=== PATIENT | female | born 1960 | race African-American/Black ===

== ENCOUNTER → 2021-08-17 | Outpatient (CLI) | payer MEDICAID | END | disposition home or self-care (01) | LOC: LAB 11:06 | PROVIDERS: ATTEND Ophthalmology | DX: Z01.812 Encounter for preprocedural laboratory examination (principal); Z20.822 Contact with and (suspected) exposure to COVID-19 | CPT/HCPCS: 87426 ==

== ENCOUNTER → 2021-08-18 | Day surgery (SDC) | payer MEDICAID ==
[~2021-08-18] VITALS: Ht 162.6 cm; Wt 58.1 kg
[~2021-08-18] MED LIST: CIPROFLOXACIN 0.3% OPHTH SOLN 2.5ML ONE; FENTANYL CITRATE/PF 50MCG/ML 2ML VIAL ONE; KETOROLAC 30MG/ML VIAL ONE; LIDOCAINE HCL/PF 1% 10 MG/ML 5ML VIAL ONE; MIDAZOLAM HCL 2 MG/2 ML VIAL ONE; NEO/POLYMYX B SULF/DEXAMETH OPHTH OINT 3.5GM ONE; PREDNISOLONE ACETATE 1% OPHTH DROPS 5ML ONE; PROPOFOL 200MG/20ML VIAL IV ONE; TETRACAINE 0.5% OPHTH DROPS 4ML ONE; TRIAMCINOLONE ACETONIDE 40MG/ML 1ML VIAL ONE
[2021-08-18] MEDS: LACTATED RINGERS 1,000 ML IV SCH ×2 (07:00→07:35)
== END | disposition home or self-care (01) ==
LOC: OR 06:11
PROVIDERS: ATTEND Ophthalmology
DX: H11.002 Unspecified pterygium of left eye (principal); E78.5 Hyperlipidemia, unspecified; Z79.899 Other long term (current) drug therapy; Z98.890 Other specified postprocedural states
CPT/HCPCS: 65426; J1885; J2250; J2704; J3010; J3301; J3490

== ENCOUNTER → 2021-11-23 | Outpatient (CLI) | payer MEDICAID ==
[~2021-11-23] MED LIST changes: -CIPROFLOXACIN 0.3% OPHTH SOLN 2.5ML ONE; -KETOROLAC 30MG/ML VIAL ONE; -LIDOCAINE HCL/PF 1% 10 MG/ML 5ML VIAL ONE; -NEO/POLYMYX B SULF/DEXAMETH OPHTH OINT 3.5GM ONE; +ONDANSETRON HCL 4MG/2ML INJ ONE; -PREDNISOLONE ACETATE 1% OPHTH DROPS 5ML ONE; -TETRACAINE 0.5% OPHTH DROPS 4ML ONE; -TRIAMCINOLONE ACETONIDE 40MG/ML 1ML VIAL ONE
== END | disposition home or self-care (01) ==
LOC: LAB 09:43
PROVIDERS: ATTEND Ophthalmology
DX: Z01.812 Encounter for preprocedural laboratory examination (principal); Z20.822 Contact with and (suspected) exposure to COVID-19
CPT/HCPCS: 87426

== ENCOUNTER → 2021-11-24 | Day surgery (SDC) | payer MEDICAID ==
[~2021-11-24] VITALS: Ht 162.6 cm; Wt 57.6 kg
[~2021-11-24] MED LIST changes: +BALANCED SALT IRRIG SOLN 15ML ONE; +BALANCED SALT IRRIG SOLN COMB1 500ML OP SCH; +CIPROFLOXACIN 0.3% OPHTH SOLN 2.5ML ONE; +CYCLOPENTOLATE HCL 1% OPHTH DROPS 2ML ONE; -FENTANYL CITRATE/PF 50MCG/ML 2ML VIAL ONE; +HYALURONATE SODIUM 10 MG/ML 0.55ML SYRINGE IO ONE; +HYDROMORPHONE HCL/PF 2MG/ML CPJ IV PRN; +LABETALOL 5MG/ML SYR 20 MG/4 ML SYRINGE IV PRN; +LIDOCAINE HCL/PF 2% 20 MG/ML 10ML VIAL ONE; +MEPERIDINE HCL/PF 25MG/ML CPJ IV PRN; -MIDAZOLAM HCL 2 MG/2 ML VIAL ONE; +NEO/POLYMYX B SULF/DEXAMETH OPHTH OINT 3.5GM ONE; +ONDANSETRON HCL 4MG/2ML INJ IV PRN; -ONDANSETRON HCL 4MG/2ML INJ ONE; +PHENYLEPHRINE HCL 10% OPHTH DROPS 5ML ONE; +PREDNISOLONE ACETATE 1% OPHTH DROPS 5ML ONE; -PROPOFOL 200MG/20ML VIAL IV ONE; +TETRACAINE 0.5% OPHTH DROPS 4ML ONE; +TROPICAMIDE 1% OPHTH DROPS 15ML ONE; +TRYPAN BLUE 0.5 ML DISP.SYRIN IO ONE
[2021-11-24 08:24] LABS: BASOPHILS % 0.7 % (0.0-2.0); EOSINOPHILS % 1.8 % (0.0-5.0); HEMATOCRIT. 38.2 % (36.0-48.0); HEMOGLOBIN. 12.7 g/dL (12.0-16.0); LYMPHOCYTES % 32.6 % (20.0-50.0); MEAN CORPUSCULAR HEMOGLOBIN 30.1 pg (28.0-32.0); MEAN CORPUSCULAR VOLUME 90.2 fL (81.0-99.0); MONOCYTES % 8.7 % (2.0-8.0); NEUTROPHILS % 56.2 % (40.0-76.0); PLATELET 180 x1000/uL (130-400); RED BLOOD CELL COUNT 4.23 mill/uL (4.2-5.4); RED CELL DISTRIBUTION WIDTH 14.2 % (11.6-14.6)
== END | disposition home or self-care (01) ==
LOC: OR 06:13
PROVIDERS: ATTEND Ophthalmology
DX: H25.89 Other age-related cataract (principal); E78.00 Pure hypercholesterolemia, unspecified; E55.9 Vitamin D deficiency, unspecified; Z79.899 Other long term (current) drug therapy; Z98.890 Other specified postprocedural states
CPT/HCPCS: 36415; 66984; 85025; J2250; J2405; J2704; J3010; J3490; Q9957; V2632

== ENCOUNTER → 2022-02-05 | Day surgery (SDC) | payer MEDICAID ==
[~2022-02-05] VITALS: Ht 162.6 cm; Wt 57.6 kg
[~2022-02-05] MED LIST changes: +BALANCED SALT IRRIG SOLN COMB1 500ML OP ONE; -BALANCED SALT IRRIG SOLN COMB1 500ML OP SCH; +CYCLOPENTOLATE HCL 1% OPHTH DROPS 2ML LEFTEYE NR; +FENTANYL CITRATE/PF 50MCG/ML 5ML VIAL ONE; +LACTATED RINGERS 1,000 ML IV SCH; +MIDAZOLAM HCL 2 MG/2 ML VIAL ONE; +PHENYLEPHRINE HCL 10% OPHTH DROPS 5ML LEFTEYE NR; +TROPICAMIDE 1% OPHTH DROPS 15ML LEFTEYE NR
== END | disposition home or self-care (01) ==
LOC: OR 11:50
PROVIDERS: ATTEND Ophthalmology
DX: H25.89 Other age-related cataract (principal); E78.00 Pure hypercholesterolemia, unspecified; Z79.899 Other long term (current) drug therapy; Z98.890 Other specified postprocedural states; Z20.822 Contact with and (suspected) exposure to COVID-19
CPT/HCPCS: 66984; 87426; J2250; J3010; J3490; Q9957; V2632